=== PATIENT | female | born 1940 | race Caucasian/White ===

== ENCOUNTER 2017-06-24 18:02 | Emergency (ER) | payer OTHER ==
[2017-06-24] MEDS: IBUPROFEN 200 MG TAB PO (19:52)
[2017-06-24] MEDS: traMADol 50 MG TAB PO (19:52)
== END 2017-06-24 21:22 | disposition home or self-care (01) ==
LOC: FTE 18:02
DX: S20.211A Contusion of right front wall of thorax, initial encounter (principal); I10 Essential (primary) hypertension; W18.39XA Other fall on same level, initial encounter; Y92.9 Unspecified place or not applicable
CPT/HCPCS: 71100; 99283-25